=== PATIENT | male | born 1970 | race Two or more races ===

== ENCOUNTER 2022-09-11 11:37 | Emergency (ER) | payer BC ==
[~2022-09-11] VITALS: Ht 167.6 cm; Wt 86.2 kg
--- NOTE | 2022-09-11 11:50 | NUR ---
[id number] from urgent care for alcohol widrawal symptoms x today. last alcohol intake was thursday. PLACED IN BED, AAOX4, BREATHING EVEN AND UNLABORED SATURATING AT 98%RA.
--- NOTE | 2022-09-11 11:52 | NUR ---
dr rosario at bedside
[2022-09-11] MEDS ORDERED: Thiamine 100 MG in IV D5W 50 ML IV STA (11:57)
[2022-09-11] MEDS ORDERED: IV LR 1000 ML 1,000 ML IV ONE (12:00)
[2022-09-11] MEDS ORDERED: Magnesium 1GM/D5W 100ML PREMIX PIGGYBACK IV ONE (12:00)
--- NOTE | 2022-09-11 12:10 | NUR ---
BLOOD DRAWN AND SENT TO LAB
[2022-09-11 12:23] LABS: BASOPHILS # (AUTO) 0.1 K/uL (0.0-0.2); BASOPHILS % (AUTO) 0.9 % (0.0-2.0); EOSINOPHILS % (AUTO) 1.3 % (0.0-6.0); HEMATOCRIT 44 % (39-51); HEMOGLOBIN 14.1 g/dL (13.5-17.5); LYMPHOCYTES # (AUTO) 1.6 K/uL (0.8-4.8); LYMPHOCYTES % (AUTO) 25.4 % (20.0-44.0); MEAN CORPUSCULAR HGB CONC 32 g/dl (31.0-36.0); MEAN CORPUSCULAR VOLUME 88 fL (80-96); MONOCYTES # (AUTO) 1.1 K/uL (0.1-1.30); MONOCYTES % (AUTO) 16.9 % (2.0-12.0); NEUTROPHILS # (AUTO) 3.5 K/uL (1.8-8.9); NEUTROPHILS % (AUTO) 55.5 % (43.0-81.0); PLATELET COUNT (AUTO) 130 K/uL (150-450); RED BLOOD CELL COUNT(AUTO) 4.95 MIL/uL (4.5-6.0); WHITE BLOOD COUNT (AUTO) 6.2 K/uL (4.3-11.0)
--- NOTE | 2022-09-11 12:25 | NUR ---
xray at bedside
[2022-09-11] MEDS ORDERED: FAMOTIDINE/PF INJ 20 MG/2 ML VIAL IV ONE ×2 (12:30→12:51)
[2022-09-11] MEDS ORDERED: Magnesium 1GM/D5W 100ML PREMIX 100 ML IV SCH (12:30)
[2022-09-11 12:33] LABS: ALCOHOL, BLOOD < 3 mg/dL (0-0); LIPASE 449 U/L (73-393); MAGNESIUM 2.4 mg/dL (1.8-2.4); PHOSPHORUS 3.5 mg/dL (2.5-4.9)
[2022-09-11 12:43] LABS: ALBUMIN 3.9 g/dL (3.4-5.0); BILIRUBIN,DIRECT 0.4 mg/dL (0.0-0.2); BILIRUBIN,TOTAL 1.3 mg/dL (0.2-1.0); CALCIUM, SERUM 9.3 mg/dL (8.5-10.1); CREATININE 1.1 mg/dL (0.6-1.3); POTASSIUM 3.6 mmol/L (3.5-5.1); TOTAL PROTEIN, SERUM 7.6 g/dL (6.4-8.2)
[2022-09-11] MEDS ORDERED: LORAZEPAM INJ 2 MG/ML VIAL ONE (13:50)
[2022-09-11] MEDS ORDERED: LORAZEPAM INJ 2 MG/ML VIAL IV ONE (14:00)
[2022-09-11 14:25] LABS: LYMPHOCYTES % (MANUAL) 31 % (16-48); MONOCYTES % (MANUAL) 18 % (0-11.0); NEUTROPHILS % (MANUAL) 47 (42-76); REACTIVE LYMPHOCYTES 4 % (0-0)
[2022-09-11 15:40] LABS: BILIRUBIN,URINE NEGATIVE (NEGATIVE); COLOR,URINE YELLOW (YELLOW); LEUKOCYTE ESTERASE ,URINE NEGATIVE (NEGATIVE); NITRITE, URINE NEGATIVE (NEGATIVE); PROTEIN,URINE NEGATIVE (NEGATIVE); UGLUCOSE NEGATIVE (NEGATIVE); UROBILINOGEN,URINE 0.2 EU/dL (0.2)
[2022-09-11] MEDS ORDERED: LORAZEPAM 1 MG TABLET PO ONE (16:00)
[2022-09-11 16:03] LABS: BACTERIA,URINE None seen /HPF (None Seen); RBC,URINE 0-2 /HPF (0-2); SQUAMOUS EPITHELIAL CELL,UR Few /HPF (None Seen); WBC,URINE NONE SEEN /HPF (0-3)
[2022-09-11] MEDS ORDERED: Magnesium 1GM/D5W 100ML PREMIX 0 ML IV ONE (16:29)
[2022-09-11] MEDS ORDERED: LORAZEPAM 1 MG TABLET ONE (16:30)
--- NOTE | 2022-09-11 17:06 | NUR ---
IV removed. Catheter intact and site benign. Pressure and 4x4 applied to site. No bleeding noted.Patient discharged to home in stable condition. Written and verbal after care instructions given. Patient verbalizes understanding of instruction.
[2022-09-11 19:00] VITALS: BP 140/89
== END 2022-09-11 17:06 | disposition home or self-care (01) ==
LOC: ER 12:29
DX: R42 Dizziness and giddiness (principal); F10.239 Alcohol dependence with withdrawal, unspecified; I10 Essential (primary) hypertension; Z88.2 Allergy status to sulfonamides; Z88.8 Allergy status to other drugs, medicaments and biological substances; Y90.0 Blood alcohol level of less than 20 mg/100 ml
CPT/HCPCS: 99285; 96365; 96367; 96375; 93005; 71045; 85025; 80048; 83690; 80076; 83735; 84100; 85007; 81001; 36415; 80320; 80307; J2060; J3490; J7060; J7120 ×2; J3411; A4223; J3475; G0480